=== PATIENT | female | born 1970 | race Two or more races ===

== ENCOUNTER 2023-12-31 14:22 | Emergency (ER) | payer BC, MEDICAID ==
[~2023-12-31] VITALS: Ht 152.4 cm; Wt 63.0 kg
[2023-12-31] MEDS ORDERED: LIDOCAINE 5% (PATCH) 1 EA PATCH TP ONE (15:31)
[2023-12-31] MEDS ORDERED: DIAZEPAM 5 MG TABLET ONE (15:31)
[2023-12-31] MEDS ORDERED: ACETAMINOPHEN 650 MG/SUPP.RECT RC ONE (15:32)
[2023-12-31] MEDS ORDERED: KETOROLAC TROMETHAMINE INJ 30 MG/ML VIAL ONE (15:32)
[2023-12-31] MEDS ORDERED: ACETAMINOPHEN 650 MG/20.3 ML UDC ONE (15:33)
[2023-12-31] MEDS: ACETAMINOPHEN 650 MG/20.3 ML UDC PO ONE (15:39)
[2023-12-31] MEDS: DIAZEPAM 5 MG TABLET PO ONE (15:39)
[2023-12-31] MEDS: KETOROLAC TROMETHAMINE INJ 30 MG/ML VIAL IM ONE (15:39)
[2023-12-31] MEDS: LIDOCAINE 5% (PATCH) 1 EA PATCH TP SCH (15:40)
[2023-12-31 17:49] LABS: PREGNANCY TEST URINE QUAL NEGATIVE (NEGATIVE)
[2023-12-31] MEDS ORDERED: IBUP-1955 PO (19:15)
[2023-12-31] MEDS ORDERED: dexAMETHasone 4 MG TABLET ONE (19:17)
[2023-12-31] MEDS ORDERED: dexAMETHasone 1 MG TABLET ONE (19:17)
[2023-12-31] MEDS: dexAMETHasone 1 MG TABLET PO ONE (19:23)
[2023-12-31 19:24] VITALS: BP 120/80; TEMP 98.2; O2SAT 98
== END 2023-12-31 19:24 | disposition home or self-care (01) ==
LOC: ER 15:52
DX: M54.50 Low back pain, unspecified (principal); I10 Essential (primary) hypertension
CPT/HCPCS: 99285; 72131; 96372; 84703; J8540 ×2; J1885